=== PATIENT | female | born 1945 | race Caucasian/White ===

== ENCOUNTER 2020-09-16 12:00 | Inpatient (IN) | payer MEDICARE, OTHER ==
[~2020-09-16] VITALS: Ht 167.6 cm; Wt 72.2 kg
--- NOTE | 2020-09-16 12:15 | NUR ---
PT TO FLOOR WITH EMS CREW. PT ABLE TO AMULATE TO BED ON OWN. SITTING UPRIGHT IN BED SHE STATES IS BETTER FOR HER ACID REFLUX. PT DENIES CONCERNS OTHER THAN THIRST AND HUNGER. STARTED 20G IV IN LEFT HAND DUE TO HEPPNER IV NO LONGER USABLE. PT RATES PAIN 2/10 IN ABDOMEN AND REPORTS SIGNIFICANT BLOATING. LAST BM YESTERDAY AND HAD LARGE QTY CHAYA RED BLOOD. VS STABLE.
--- NOTE | 2020-09-16 14:28 | NUR ---
PT RESTING WITH EYES CLOSED. CALL LIGHT ON LAP.
--- NOTE | 2020-09-16 15:17 | NUR ---
PT RESTING IN BED ASKS WHEN DR ROWE WILL BE IN TO SEE HER. VERBALIZES UNDERSTANDING IT WILL BE SOMETIME LATER TODAY, SPECIFICALLY UNKNOWN. PT WATCHING TV DENIES DISCOMFORTS OR NEEDS OF. ORAL CARE AND PERSONAL ITEMS PROVIDED
--- NOTE | 2020-09-16 15:53 | NUR ---
pt notified dr Jones calls to check on her, he will be in later. pt is to start clear liquids and miralax bowel prep
--- NOTE | 2020-09-16 17:00 | NUR ---
PT C/O ABDOMINAL PAIN PHONED DR ROWE LEFT MESSAGE REQUEST MED ORDERS
--- NOTE | 2020-09-16 17:30 | NUR ---
PT DAUGHTER TO THE RN STATION APPEARS IRRITATED ASKING FOR PAIN MEDS FOR MOM STATES IT'S BEEN 3 HOURS.
--- NOTE | 2020-09-16 17:31 | NUR ---
PT DRINKING GATORADE MIRALAX MIXTURE, RESTING IN BED. BSC SET AT BEDSIDE FOR CONVENIENCE
--- NOTE | 2020-09-16 18:01 | NUR ---
DR ROWE ANSWERS PHONE AGREES TO ORDERS FOR PAIN MEDS. RETURNED TO ROOM, NOTIFIED PT AND HER DAUGHTER ORDERS HAVE BEEN GIVEN, PAIN MEDS IN JUST A COUPLE MINUTES. DAUGHTER IS APOLOGETIC FOR HER EARLIER IRRITATION ASSURED HER THAT HER IRRITATION WAS UNDERSTANDABLE IT WAS JUST A FLUKE THING. MEDICATION ADMNISTERED PT AGREES IT IS HELPFUL. PT MOVING ALOT OF STOOL SHE PREFERS TO STAY SEATED ON BSC AT THIS TIME. PILLOW PLACED BEHIND HER, WARM BLANKETS PROVIDED, WASTE BASKET UNDER FEET. BOTH PT AND DT APPEAR TO BE SATISFIED AND HAPPY WITH SERVICE.
[2020-09-16] MEDS ORDERED: SYNTHROID125 MCG PO (18:22)
[2020-09-16] MEDS ORDERED: XANAX0.5 MG PO (18:22)
[2020-09-16] MEDS ORDERED: INCRUSE ELLI62.5 MCG INH (18:23)
[2020-09-16] MEDS ORDERED: BREO ELLIPTA 21 EACH INH (18:23)
[2020-09-16] MEDS ORDERED: NORVASC2.5 MG PO (18:23)
[2020-09-16] MEDS ORDERED: VENTOLIN HFA18 GM INH (18:24)
[2020-09-16] MEDS ORDERED: OLANZAPINE2.5 MG PO (18:24)
[2020-09-16] MEDS ORDERED: PERCOCET 10-321 EACH PO (18:25)
[2020-09-16] MEDS ORDERED: ALBUTEROL2.5 MG/3 M INH (18:26)
--- NOTE | 2020-09-16 18:26 | NUR ---
DR ROWE IN TO SEE PT, DAUGHTER IS PRESENT. PLAN OF CARE GOING FORWARD DISCUSSED ALL QUESTIONS ANSWERED. PT AND DT DENY CONCERNS OR FURTHER QUESTIONS
--- NOTE | 2020-09-16 19:30 | NUR ---
SHIFT REPORT RECEIVED. PATIENT IS FILLING OUT PAPERWORK WITH TRAFFIC DIVISION COMMANDING OFFICER. PATIENT HAS NO NEEDS AT THIS TIME. CALL LIGHT IN REACH.
--- NOTE | 2020-09-16 21:00 | NUR ---
PT CALLED SHE IS DONE ON BSC AND NEEDED ASSISTANCE CLEANING UP. NEW GOWN AND ATTENDS IN PLACE. PT DENIES FURTHER NEEDS, CALL LIGHT IS CLOSE.
--- NOTE | 2020-09-16 22:31 | NUR ---
PATIENT HAVING 4/10 ABD PAIN AND GIVEN 4MG OF IV MS. PATIENT HAS HAD MULTIPLE TRIPS TO THE BEDSIDE COMMODE WITH HER BOWEL PREP. ASSESSMENT COMPLETE. PATIENT HAS NO OTHER NEEDS AT THIS TIME.
--- NOTE | 2020-09-17 00:30 | NUR ---
PATIENT RESTING QUIETLY, EYES CLOSED, RESPIRATIONS REGULAR AND EVEN, CALL LIGHT IN REACH.
--- NOTE | 2020-09-17 02:20 | NUR ---
PATIENT WAS ASLEEP BUT WOKE UP FOR ASSESSMENT. PAIN IS CONTROLLED. PATIENT REMAINS NPO FROM MIDNIGHT. PATIENT HAD NO CARE NEEDS AT THIS TIME. CALL LIGHT IN REACH.
--- NOTE | 2020-09-17 05:20 | NUR ---
PATIENT HAS REMAINED WITHOUT NEED OF ANY IV PAIN MEDICATION SINCE THE FIRST AND ONLY DOSE GIVEN IN THE FIRST PART OF THE SHIFT. PATIENT GIVEN HER AM MEDS WITH A SIP OF WATER, OTHERWISE NPO FOR THIS MORNING. LIGHT BROWN FLECKS OUT IN LIQUID STOOL. PATIENT HAS NO CURRENT CARE NEEDS. CALL LIGHT IN REACH.
--- NOTE | 2020-09-17 07:27 | NUR ---
Report from Fabi Belle RN. Patient resting in bed on side at this time. Call light in reach, bed rails up X2.
--- NOTE | 2020-09-17 09:31 | NUR ---
AM MEDICATIONS ADMINISTERED, ASSESSMENT COMPLETED. DENIES PAIN AT THIS TIME. CALL LIGHT IN REACH, BED RAILS UP X2.
[2020-09-17] MEDS ORDERED: CALCIUM 500 +1 EAC2 PO (11:39)
[2020-09-17] MEDS ORDERED: PROBIOTIC1 EAC1 PO (11:39)
[2020-09-17] MEDS ORDERED: VITAMIN B-121000 MCG PO (11:39)
[2020-09-17] MEDS ORDERED: VITAMIN D325 MCG PO (11:40)
[2020-09-17] MEDS ORDERED: CYCLOBENZAPRINE10 MG PO (11:41)
[2020-09-17] MEDS ORDERED: PROZAC40 MG PO (11:41)
[2020-09-17] MEDS ORDERED: VOLTAREN ARTHRI20 GM TOP (11:42)
--- NOTE | 2020-09-17 11:42 | NUR ---
MED REC COMPLETE
--- NOTE | 2020-09-17 11:44 | NUR ---
CALLS AND STATES HER PAIN IN ABDOMEN IS MINIMAL BUT RATES LEG PAIN 2/10. INFORMED HER TYLENOL IS SCHEDULED FOR 1400. STATES HER PAIN IS TOO BAD, SHE NEEDS SOMETHING AT THIS TIME. SITTING ON EDGE OF BED, RUBBING RIGHT THIGH. DESCRIBES PAIN SIMILAR TO TOOTH ACHE WITH THROBING.
--- NOTE | 2020-09-17 12:51 | NUR ---
Lying in bed on left side. Respirations even and unlabored, eyes closed. Call light in reach, bed rails up X2.
--- NOTE | 2020-09-17 15:25 | NUR ---
SITTING ON EDGE OF BED, WOULD LIKE TO WALK HALLS. STEADY GAIT, REMAINS ALERT AND ORIENTED. ALLOWED TO WALK HALLS. DENIES OTHER NEEDS. ASSESSMENT COMPLETED.
--- NOTE | 2020-09-17 17:35 | NUR ---
09/17/20 1735 Gisselle Alaniz 1733 PATIENT ARRIVES TO PACU RESTING WITH EYES CLOSED. OPENS EYES WITH VERBAL STIMULI, ASKING FOR WATER. RESP EVEN AND UNLABORED, MASK AT 6 LITERS, SATS 100%.
--- NOTE | 2020-09-17 17:40 | NUR ---
Attempted to see pt and she is gone for colonoscopy. Will see tomorrow.
--- NOTE | 2020-09-17 18:45 | NUR ---
NPO MOST OF TODAY. COLONOSCOPY THIS AFTERNOON, FOUND ISCHEMIC COLITIS. CHANGED DIET TO LOW FIBER. MORPHINE GIVEN PRN FOR PAIN. TAKING ORAL FLUIDS WITHOUT DIFFICULTY POST-OP.
--- NOTE | 2020-09-17 18:55 | NUR ---
SHIFT REPORT RECEIVED FROM DAYSHIFT RN JEFF AT BEDSIDE. pt AWAKE AND RESTING IN BED, APPEARS COMFORTABLE, NO DISTRESS NOTED. BOARD UPDATED, CALL LIGHT IN REACH.
--- NOTE | 2020-09-17 19:20 | NUR ---
in to provide pt new attends, no further needs at this time
--- NOTE | 2020-09-17 21:15 | NUR ---
pt RESTING QUIETLY IN BED, DENIES NEEDS. RR EVEN AND UNLABORED, CALL LIGHT IN REACH.
--- NOTE | 2020-09-17 22:05 | NUR ---
ASSESSMENT COMPLETE, SCHEDULED MEDS GIVEN, SEE EMAR. pt REPORTS 5/10 PAIN, REQUESTING PAIN MEDICATION IN ADDITION TO SCHEDULED TYLENOL. 2MG IV MORPHINE GIVEN, SEE EMAR. VSS, pt A/OX4. IV FLUIDS INFUSING PER MD ORDERS, SITE WNL. pt DENIES RECTAL BLEEDING, WILL CONTINUE TO MONITOR. CALL LIGHT IN REACH. NO FURTHER NEEDS.
--- NOTE | 2020-09-18 00:45 | NUR ---
pt RESTING IN BED WITH EYES CLOSED, RR EVEN AND UNLABORED. O2 SAT 95% ON RA, HR 68. NO DISTRESS OR SIGNS OF PAIN, CALL LIGHT IN REACH.
--- NOTE | 2020-09-18 02:20 | NUR ---
IN TO GET VITALS, EMPTIED BSC, ICE WATER REFRESHED AND WARM BLANKET PROVIDED, NO FURTHER NEEDS AT THIS TIME
--- NOTE | 2020-09-18 02:30 | NUR ---
pt AWAKE AND RESTING IN BED, REPORTS TOLERABLE 2/10 PAIN. ASSESSMENT COMPLETE, NO NEW CHANGES OR CONCERNS. CALL LIGHT IN REACH. BOARD UPDATED, YAZ STEEL IN ROOM TO COLLECT VS.
--- NOTE | 2020-09-18 04:12 | NUR ---
pt RESTING QUIETLY IN BED WIH EYES CLOSED, RR EVEN AND UNLABORED. CALL LIGHT IN REACH.
--- NOTE | 2020-09-18 05:04 | NUR ---
IN ROOM TO ANSWER CALL LIGHT, pt REPORTS DIARRHEA AND SOME ABD CRAMPING. BSC EMPTIED, BMX1 AND UNMEASURED VOID X1 NOTED. VS AND I&O'S STABLE, WARM BLANKETS GIVEN X2. CALL LIGHT IN REACH.
--- NOTE | 2020-09-18 06:28 | NUR ---
SCHEDULED THYROID AND TYLENOL GIVEN FOR 2/10 PAIN, WARM BLANKET AND JELLO PROVIDED PER pt REQUEST. NO FURTHER NEEDS, CALL LIGHT IN REACH.
--- NOTE | 2020-09-18 07:06 | EKG ---
[facility] [address] [facility] [place], [place] [address] Signed Normal sinus rhythm Prolonged QT Abnormal ECG No previous ECGs available Confirmed by MARISSA MEJÍA MD ([id number]) on 09/18/2020 7:05:52 AM Electronically Signed By: MARISAS MEJÍA MD 09/18/20 0706 PATIENT NAME: JEFFREYJUNIOR L Electrocardiogram DATE OF : 49 PHYSICIAN: MARISSA MEJÍA MD REPORT #: [id number] REPORT IS CONFIDENTIAL AND NOT TO BE RELEASED WITHOUT AUTHORIZATION
--- NOTE | 2020-09-18 07:21 | NUR ---
Report from JENI Higginbotham. Patient sitting up in bed, alert and oriented, playing on phone. Denies needs. Call light in reach, bed rails up X2. IV fluids infusing.
--- NOTE | 2020-09-18 09:09 | NUR ---
PATIENT AWAKE IN BED. VITALS AND I&OS CHARTED. RN IN ROOM. CALL LIGHT IN REACH
--- NOTE | 2020-09-18 09:23 | NUR ---
AM medications given. Takes without difficulty. Educated on oral antibiotics, verbalizes understanding. Concerned she will have nausea on the way home and requests zofran prior to DC. Assessment completed. passing flatus without difficulty. Denies other needs at this time. Call light in reach, bed rails up X2.
--- NOTE | 2020-09-18 10:28 | NUR ---
Sitting on edge of bed. Denies needs at this time. Voices desire to go home.
--- NOTE | 2020-09-18 11:56 | NUR ---
Sitting on edge of bed. States she wants to go home. Scheduled medication given. Denies other needs.
--- NOTE | 2020-09-18 12:56 | NUR ---
Patient up in room, talking to spouse. Denies needs at this time. Does want to to go home. IV converted to SL.
--- NOTE | 2020-09-18 13:07 | NUR ---
Walks out to nurse's station and informs aides she would like to sign out AMA. This nurse goes down to patient's room. She verbalizes desire to go home, stating she is tired of waiting to be discharged and begins to pull dressing off IV site. IV DC'd by this nurse, catheter intact. Informed if she signs out AMA, without antibiotic prescriptions, she has a chance of becoming septic, needing surgery and possibly if she becomes ill enough. Verbalizes understanding stating " may not be so bad." Spouse at bedside, does not say anything. Called day surgery, spoke with JENI Gillespie, informed of patient desire to leave AMA. She calls back and informs she spoke with Dr. Bearden and he is almost done in surgery and will return to floor shortly to see patient.
--- NOTE | 2020-09-18 13:15 | NUR ---
PATIENT OUT TO NURSES STATION, STATES SHE IS READY TO SEE THE DR NOW, AND SOMEONE NEEDS TO FIND HIM NOW, OTHERWISE SHE IS LEAVING AMA. RN NOTIFIED. RN TO ROOM
[2020-09-18] MEDS ORDERED: CIPROFLOXACIN500 MG PO (14:32)
[2020-09-18] MEDS ORDERED: METRONIDAZOLE250 MG PO (14:33)
--- NOTE | 2020-09-19 13:48 | DS ---
[facility] [address] [place], [place] [address] Signed ADMISSION DATE: 09/16/2020 DISCHARGE DATE: 09/18/2020 REASON FOR ADMISSION: This 75-year-old white woman is from [place], [place], accompanied by her daughter, who is from [facility]. I was called earlier in the day by Dr. Taryn Rousseau, family physician in [facility], who admitted the patient for what appeared to be hematochezia. She is known to have had diverticulosis on colonoscopy performed more than two years ago by Dr. Rousseau. Given the gross blood per rectum, which was persistent, Dr. Rousseau was concerned she may require emergency resection with exception of transfer from [place] on that basis. PERTINENT PHYSICAL EXAMINATION: GENERAL: Showed a pleasant, somewhat obese white woman, who looks to be in no current distress. Temperature 98.1, pulse 79, blood pressure 106/67, O2 saturation on room air 94%. NECK: She had no thyromegaly or cervical adenopathy. Trachea is midline. CHEST: Clear. HEART: Regular without murmur. ABDOMEN: Obese, but nondistended. Otherwise, she had mild tenderness in the left lower abdomen. EXTREMITIES: She had no clubbing, cyanosis, or edema. LABORATORY STUDIES: Showed a white count of 13.9, hematocrit of 40.8, platelets 311,000. HOSPITAL COURSE: She was admitted, given intravenous fluids and was observed where she was found to have no further significant bleeding. On that basis and uncertain as to the true etiology of her bleeding and unlikely need for resection at least acutely, a colonoscopy was deemed advisable. She did undergo bowel prep and on September 17, 2020, was found to have ischemic colitis extending from the sigmoid to the left colon. There was complete sparing of the left transverse colon and rectum. She was maintained on antibiotics at the outset of her presentation with her white count of 13.9 and subsequent white count on September 17 of 12.7. This was largely related to her tenderness in the left lower abdomen. Given the findings of ischemic colitis, which were rather classic and typical and without sign of further bleeding, she was begun on a low-fiber diet and maintained with oral antibiotics Cipro and Flagyl. By day of Electronically Signed By: MILLIE ROWE MD 09/19/20 1348 PATIENT NAME: JUNIOR MURPHY DISCHARGE SUMMARY DATE OF : 49 REPORT #: [id number] PHYSICIAN: MILLIE ROWE MD PCP: UNASSIGNED DOCTOR REPORT IS CONFIDENTIAL AND NOT TO BE RELEASED WITHOUT AUTHORIZATION [facility] [address] [place], [place] [address] Signed discharge, she is feeling quite a bit better. She still has mild left lower abdominal tenderness. Our plan going forward is for her to maintain a low-fiber diet for the next 4 weeks. I will see her back in about that time. She will call on Monday to schedule an appointment (today is Monday). In addition, she will have 7 days of Cipro and Flagyl. It is not my usual habit to discharge with antibiotics for this particular ailment except in her situation. She does have rather significant mucosal necrosis and avoidance of translocation and so forth would be optimal and in particular given her elevated white count at the time of presentation. Long-term goal will be to repeat colonoscopy in 4-6 weeks to assure that she is not developed stricture and has no persisting ischemic colitis. The patient has been bothered by diverticular symptoms in the past and resection for diverticular disease is indicated for a different set of reasons, none of which she currently has at the moment. I have called Dr. Rousseau about this yesterday to let him know of the findings. If she has problems in the meantime, she will let me or Dr. Rousseau know. DISCHARGE MEDICATIONS: 1. Cipro 500 mg one tablet p.o. b.i.d. #14. 2. Flagyl 250 mg p.o. t.i.d. with meals #21, no refill. 3. She will continue her usual medication of Synthroid 125 mcg p.o. daily. 4. Alprazolam 0.5 mg 3 tabs p.o. at bedtime as needed for anxiety. 5. Amlodipine (Norvasc) 2.5 mg one tablet p.o. daily. 6. Fluticasone and vilanterol inhaler 1 puff daily. 7. Incruse Ellipta 62.5 mcg blast 1 inhalation daily. 8. Albuterol (Ventolin inhaler) 1-2 puffs q.4 hours as needed for shortness of breath. 9. Olanzapine 2.5 mg p.o. at bedtime. 10. Percocet 10/325 one p.o. as needed for pain. 11. Calcium carbonate/vitamin D3 one tablet p.o. b.i.d. 12. Probiotic one cap p.o. daily. 13. Vitamin B12 one tablet p.o. daily. 14. Vitamin D 1000 units p.o. daily. 15. Flexeril 10 mg t.i.d. as needed for muscle spasm. 16. Fluoxetine (Prozac) 40 mg p.o. daily. 17. Diclofenac (Voltaren) 2 g topically as needed for pain. I have advised the patient to avoid smoking as it is a highly probable etiology in relation to her ischemic colitis. She is anticipating discontinue smoking entirely. She refuses any medical means to do this including nicotine patch and others. I have Electronically Signed By: MILLIE ROWE MD 09/19/20 1348 PATIENT NAME: JUNIOR MURPHY DISCHARGE SUMMARY DATE OF : 49 REPORT #: [id number] PHYSICIAN: MILLIE ROWE MD PCP: UNASSIGNED DOCTOR REPORT IS CONFIDENTIAL AND NOT TO BE RELEASED WITHOUT AUTHORIZATION [facility] [address] [place], [place] [address] Signed recommended that, but she believes that she can do this without the aid of medications. DISCHARGE DIAGNOSES: 1. Significant hematochezia without development of anemia. 2. Findings of ischemic colitis extending from sigmoid through left colon. 3. Smoking. 4. Chronic obstructive pulmonary disease. 5. Known history of diverticulosis. 6. Hypothyroidism. 7. Hypertension. 8. Chronic obstructive pulmonary disease. No doubt related to cigarette smoking. MD JESUSITA Bauer/[place] /[id number] cc: Taryn Rousseau MD Copies: TARYN ROUSSEAU MD ~ Electronically Signed By: MILLIE ROWE MD 09/19/20 1348 PATIENT NAME: JUNIOR MURPHY DISCHARGE SUMMARY DATE OF : 49 REPORT #: [id number] PHYSICIAN: MILLIE ROWE MD PCP: UNASSIGNED DOCTOR REPORT IS CONFIDENTIAL AND NOT TO BE RELEASED WITHOUT AUTHORIZATION
--- NOTE | 2020-09-19 13:48 | OR ---
[facility] [address] [place], [place] [address] Signed DATE OF OPERATION: 09/17/2020 SURGEON: Millie Rowe MD PREOPERATIVE DIAGNOSIS: Hematochezia, known history of diverticular disease. POSTOPERATIVE DIAGNOSIS: Ischemic colitis, left colon including sigmoid. PROCEDURE: Total colonoscopy to cecum with multiple biopsies. ANESTHESIA: Intravenous sedation, propofol infusion, Vipul Leo CRNA. INDICATION: This 75-year-old white woman is a patient of Dr. Taryn Rousseau. She presented with hematochezia and some left-sided abdominal pain. She was evaluated and hospitalized by Dr. Rousseau and had recurrent bouts of hematochezia and concern was maintained for possible bleeding diverticulosis as her colonoscopy in the past had demonstrated diverticula. She was received in transfer yesterday September 16, 2020, and was noted to have some left lower abdominal tenderness and complaints of pain. No hematemesis and less rectal bleeding than previously. Although resection for persistent bleeding for sigmoid diverticular problems is a consideration often that can be controlled endoscopically allowing for avoidance of emergency sigmoid resection and on that basis, I recommended colonoscopy. Additionally, other etiologies of bleeding including colitis, ischemic colitis, and importantly neoplasm would also be worth knowing prior to any intended resection. She underwent a bowel prep yesterday and is now to undergo colonoscopy. She has not had any bleeding today. FINDINGS: The prep was good. Complete colonoscopy was undertaken to the cecum. She had ischemic colitis which extended from the rectosigmoid proximally to the beginning of the left colon. There were some diverticula associated with this. The more proximal colon and the rectosigmoid and rectum were spared of any inflammation at all. DESCRIPTION OF PROCEDURE: The patient was brought to the endoscopy suite and placed in lateral decubitus position, given intravenous sedation with full cardiopulmonary monitoring by the grounds maintenance manager. A Electronically Signed By: MILLIE ROWE MD 09/19/20 1348 PATIENT NAME: JUNIOR MURPHY OPERATIVE REPORT DATE OF : 49 REPORT #: [id number] PHYSICIAN: MILLIE ROWE MD PCP: UNASSIGNED DOCTOR REPORT IS CONFIDENTIAL AND NOT TO BE RELEASED WITHOUT AUTHORIZATION [facility] [address] [place], [place] [address] Signed digital rectal examination was normal. An Olympus video colonoscope was passed in the rectum and a small amount of blood was noted, though no clots or anything of that sort. Upon entering into the sigmoid colon immediately noted was obvious diverticular changes, but more importantly ischemic colitis. With various manipulations, the scope was advanced through the sigmoid and left colon showing very intense ischemic colitis. Splenic flexure was encountered which showed transition to normal mucosa. More proximal colon including transverse and right colon was entirely normal. Biopsies were taken of the cecum upon withdrawal of scope as well as the left transverse colon. Biopsies were then taken of the proximal descending colon which had ischemic changes. Biopsies were relatively taken of the sigmoid and ultimately at 20 cm from the rectosigmoid, which showed quite obvious ischemic colitis. At about 15 to 18 cm, the mucosa was entirely normal. Once again, biopsies were taken there as well. Retroflexed view showed no sign of abnormality to the rectum. Scope was removed and the patient was taken to the recovery room in good condition. CONCLUDING DIAGNOSIS: Hematochezia related to ischemic colitis, a bit more distal than usual, but including sigmoid and left colon. PLAN: Surgical resection of is not indicated unless perforation or stricture she develop , there should be intractable bleeding. We will initiate a low-fiber diet, oral antibiotics Cipro and Flagyl and likely discharge in the near future. Followup will be undertaken in a few weeks. MD JESUSITA Bauer/[place] /[id number] cc: Trayn Rousseau MD Copies: TARYN ROUSSEAU MD Electronically Signed By: MILLIE ROWE MD 09/19/20 1348 PATIENT NAME: JUNIOR MURPHY OPERATIVE REPORT DATE OF : 49 REPORT #: [id number] PHYSICIAN: MILLIE ROWE MD PCP: UNASSIGNED DOCTOR REPORT IS CONFIDENTIAL AND NOT TO BE RELEASED WITHOUT AUTHORIZATION [facility] [address] [facility] [place], [place] [address] Signed ~ Electronically Signed By: MILLIE ROWE MD 09/19/20 1348 PATIENT NAME: JUNIOR MURPHY OPERATIVE REPORT DATE OF : 49 REPORT #: [id number] PHYSICIAN: MILLIE ROWE MD PCP: UNASSIGNED DOCTOR REPORT IS CONFIDENTIAL AND NOT TO BE RELEASED WITHOUT AUTHORIZATION
--- NOTE | 2020-09-19 13:48 | HP ---
[facility] [address], [place] [address] Signed ADMISSION DATE: 09/16/2020 REASON FOR ADMISSION: Hematochezia, known diverticular disease. HISTORY OF PRESENT ILLNESS: This 75-year-old white woman is from [place], [place]. She is accompanied by her daughter, who is from [facility]. I was called earlier in the day by Dr. Taryn Rousseau, family physician, in [place], who had admitted the patient for what appeared to be hematochezia. She is known to have had diverticulosis on colonoscopy more than [address] Rousseau. Given the gross blood per rectum, Dr. Rousseau was concerned she may require emergency resection. On that basis, she was accepted in transfer from [place]. Since hospitalization, she has had a small amount of blood per rectum, but not much and not massive by any means. Her hematocrit upon presentation approximately 1:00 p.m. showed a white count of 13.9, hematocrit of 40.8. Mindful that prior colonoscopy did confirm diverticulosis, but having been nearly 2 years since colonoscopy. Consideration is made for a more measured approach than resection without further investigation. PAST MEDICAL HISTORY: Known for recurrent diverticular disease including diverticulitis and an episodic significant constipation type problem. The patient is known to have COPD, which is well controlled overall. Additionally, she has hypothyroidism chronically. MEDICATIONS: Her medications include: 1. Albuterol nebulizer 1-2 puffs q.4 hours as needed. 2. Xanax 3 tabs p.o. at bedtime 0.5 mg. 3. Amlodipine (Norvasc 2.5 mg) p.o. daily. 4. Synthroid 125 mcg p.o. daily. 5. Olanzapine 2.5 mg p.o. at bedtime. 6. Percocet 10/325 one p.o. q.6 hours as needed for pain as well as umeclidinium bromide, i.e., Incruse Ellipta 62.5 mcg inhaled daily. SURGICAL HISTORY: Notable for tonsillectomy in the distant past and appendectomy. Electronically Signed By: MILLIE ROWE MD 09/19/20 1348 PATIENT NAME: JUNIOR MURPHY HISTORY AND PHYSICAL DATE OF : 49 REPORT #: [id number] PHYSICIAN: MILLIE ROWE MD PCP: UNASSIGNED DOCTOR REPORT IS CONFIDENTIAL AND NOT TO BE RELEASED WITHOUT AUTHORIZATION [facility] [address] [place] [id number] Signed REVIEW OF SYSTEMS: She denies any shortness of breath or chest pain. She has had no dysphagia or dysuria. Denies any hematemesis. She has had bright blood per rectum as previously described. PHYSICAL EXAMINATION: GENERAL: Pleasant white woman, who looks to be in no current distress. VITAL SIGNS: Temperature is 98.1, pulse 79, blood pressure 106/67, O2 saturation on room air is 94%. NECK: Shows no thyromegaly or cervical adenopathy. Trachea is midline. CHEST: Clear. HEART: Regular without murmur. ABDOMEN: Obese, but nondistended otherwise. EXTREMITIES: Show no clubbing, cyanosis, or edema that I can see. LABORATORY STUDIES: Showed a white count of 13.9, hematocrit of 40.8, platelets 311,000. ASSESSMENT AND PLAN: The patient has had hematochezia, which seems to have abated since transfer. I have recommended bowel prep, which has been initiated anticipating colonoscopy. Endoscopic control of bleeding diverticular disease is a consideration if possible. Additionally, it would be appropriate to assess that there is no evidence of neoplastic disease or colitis or ischemic colitis that may account for her symptoms, which certainly a possibility as well. The risks of bleeding, infection, and perforation related to colonoscopy were reviewed with the patient as well as her daughter, who is present. We will plan for colonoscopy after adequate bowel prep. If she should "cut loose" with bleeding, the plan can be modified and expedited. Millie Rowe MD JM/MODL /[id number] cc: Taryn Rousseau MD Electronically Signed By: MILLIE ROWE MD 09/19/20 1348 PATIENT NAME: JUNIOR MURPHY HISTORY AND PHYSICAL DATE OF : 49 REPORT #: [id number] PHYSICIAN: MILLIE ROWE MD PCP: UNASSIGNED DOCTOR REPORT IS CONFIDENTIAL AND NOT TO BE RELEASED WITHOUT AUTHORIZATION [address] [address] Signed Copies: TARYN ROUSSEAU MD ~ Electronically Signed By: MILLIE ROWE MD 09/19/20 1348 PATIENT NAME: JUNIOR MURPHY Jose HISTORY AND PHYSICAL DATE OF : 49 REPORT #: [id number] PHYSICIAN: MILLIE ROWE MD PCP: UNASSIGNED DOCTOR REPORT IS CONFIDENTIAL AND NOT TO BE RELEASED WITHOUT AUTHORIZATION
== END 2020-09-18 14:55 | disposition home or self-care (01) | DRG 395 ==
LOC: MS 12:00
PROVIDERS: ADMIT Surgery; ATTEND Surgery
PROC: 0DBL8ZX Excision of Transverse Colon, Via Natural or Artificial Opening Endoscopic, Diagnostic (ICD-10-PCS; 2020-09-17)
PROC: 0DBN8ZX Excision of Sigmoid Colon, Via Natural or Artificial Opening Endoscopic, Diagnostic (ICD-10-PCS; 2020-09-17)
PROC: 0DBM8ZX Excision of Descending Colon, Via Natural or Artificial Opening Endoscopic, Diagnostic (ICD-10-PCS; 2020-09-17)
PROC: 0DBH8ZX Excision of Cecum, Via Natural or Artificial Opening Endoscopic, Diagnostic (ICD-10-PCS; principal; 2020-09-17 13:45)
DX: K55.9 Vascular disorder of intestine, unspecified (principal); K57.30 Diverticulosis of large intestine without perforation or abscess without bleeding; E66.9 Obesity, unspecified; J44.9 Chronic obstructive pulmonary disease, unspecified; E03.9 Hypothyroidism, unspecified; I10 Essential (primary) hypertension; F17.210 Nicotine dependence, cigarettes, uncomplicated; Z79.899 Other long term (current) drug therapy; Z68.25 Body mass index [BMI] 25.0-25.9, adult
CPT/HCPCS: 36415; 80053; 85025; 86850; 86900; 86901; 86920; 93005; 93010; 94760; 99153; G0500; J0694; J1644; J2001; J2270; J2704; J7121